=== PATIENT | male | born 1950 | race Caucasian/White ===

== ENCOUNTER 2020-07-14 11:16 | Inpatient (IN) ==
[2020-07-14 15:22] LABS: BASOPHILS % (AUTO) 0.4 % (0.2-1.0); EOSINOPHILS # (AUTO) 0.1 x10^3/uL (0.0-0.2); EOSINOPHILS % (AUTO) 0.8 % (0.9-2.9); HEMATOCRIT 39.8 % (42.0-54.0); HEMOGLOBIN 13.8 g/dL (13.5-18.0); LYMPHOCYTES # (AUTO) 1.2 X10^3/uL (1.3-2.9); LYMPHOCYTES % (AUTO) 14.3 % (21.0-51.0); MEAN CORPUSCULAR HEMOGLOBIN 31.9 pg (27.0-34.0); MEAN CORPUSCULAR HGB CONC 34.8 g/dL (33.0-35.0); MEAN CORPUSCULAR VOLUME 91.7 fL (80.0-100.0); MEAN PLATELET VOLUME 7.3 fL (7.4-11.0); MONOCYTES # (AUTO) 0.7 x10^3/uL (0.3-0.8); MONOCYTES % (AUTO) 8.6 % (0.0-13.0); NEUTROPHILS # (AUTO) 6.4 x10^3/uL (2.2-4.8); NEUTROPHILS % (AUTO) 75.9 % (42.0-75.0); PLATELET COUNT 219 X10^3/uL (150.0-450.0); RED BLOOD COUNT 4.34 X10^6/uL (4.7-6.0); RED CELL DISTRIBUTION WIDTH 13.1 % (11.6-16.5); WHITE BLOOD COUNT 8.5 X10^3/uL (3.6-10.0)
[2020-07-14 15:31] LABS: ALANINE AMINOTRANSFERASE 41 Units/L (12-78); ALBUMIN 3.2 g/dL (3.4-5.0); ALKALINE PHOSPHATASE 90 Units/L (46-116); ASPARTATE AMINO TRANSFERASE 24 Units/L (15-37); BLOOD UREA NITROGEN 9 mg/dL (7-18); CALCIUM 9.1 mg/dL (8.5-10.1); CARBON DIOXIDE 27.5 mmol/L (21-32); CHLORIDE 102 mmol/L (98-107); COR CA(FOR HYPOALB) 9.7 mg/dL (8.5-10.1); COR NA(FOR HYPERGLY) 135 mmol/L (136-145); CREATININE 0.85 mg/dL (0.70-1.30); SODIUM 135 mmol/L (136-145); eGFR NON BLACK RACES > 60 (>60)
[2020-07-14] MEDS ORDERED: NS 1000 ML 1,000 ML IV SCH (16:00)
[2020-07-14] MEDS ORDERED: NS 1000 ML 1,000 ML ONE (16:02)
[2020-07-14] MEDS ORDERED: ANTIVERT TAB 25 MG PO PRN (16:15)
[2020-07-14] MEDS ORDERED: LASIX PO PRN (16:15)
--- NOTE | 2020-07-14 16:23 | CT ---
HISTORYPT C/O LEFT SIDED WEAKNESSSTUDYBRAIN W/O CONCOMPARISONNoneTECHNIQUEMultiple CT axial images of the head were obtained without IV contrast. Coronal and sagittal images were reconstructed. Dose reduction techniques included Automated Exposure Control (AEC) and adjustment of mA and kV.FINDINGSColpocephalic dilatation of the lateral ventricles is present. There is also dilatation of the 3rd ventricle. This is incongruent with the relatively minimal amount of overlying cortical atrophy. Findings suggest hydrocephalus.Decreased density in the periventricular white matter could be periventricular edema from the hydrocephalus or could be the micro ischemic changes of aging.No mass, shift, or hemorrhage. 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 No cystic formation in the posterior fossa to suggest Dandy-Walker malformation.Basilar cisterns are intact.No fluid in the sinuses or mucosal thickening to suggest sinusitis. There is no mastoid effusion.IMPRESSION1. Congenital absence of the corpus callosum2. Findings suggesting hydrocephalus3. No acute infarct or hemorrhageElectronically signed by: Simon Gibbs (Jul 14, 2020 16:23:36)
--- NOTE | 2020-07-14 16:25 | RAD ---
HISTORYPT C/O DIARRHEASTUDYACUTE ABDOMEN SERIESCOMPARISONNoneFINDINGSThe trachea is midline. The cardiac silhouette is [unremarkable]. [The lungs are clear without focal mass or consolidation. There is no effusion or pneumothorax.] [The bony thorax is unremarkable]. Note is made of old healed right posterior upper rib fractures. No free air seen under the diaphragm.Flat plate and upright evaluation of the abdomen demonstrates a [normal bowel gas pattern]. There is no pneumoperitoneum. No pathological soft tissue mass or calcification can be observed. The bony structures are grossly intact.IMPRESSION1. [No acute cardiopulmonary disease.]2. [No evidence for acute abdominal pathology identified.]Electronically signed by: SARAH ELY (Jul 14, 2020 16:25:20)
[2020-07-14 17:08] VITALS: BMI 29.0
[2020-07-14] MEDS: PROTONIX INJ 40 MG VIAL IVP SCH (17:30)
[2020-07-14] MEDS ORDERED: ZOLOFT PO ONE (20:07)
[2020-07-14] MEDS ORDERED: VALIUM ONE (20:53)
[2020-07-14] MEDS ORDERED: ARICEPT TAB 10 MG PO SCH (21:00)
[2020-07-14] MEDS ORDERED: MYLICON TAB 80 MG CHEW PO SCH (21:00)
[2020-07-14] MEDS: VALIUM PO SCH (21:12)
[2020-07-14] MEDS: DILANTIN CAP 100 MG EXT REL PO SCH (21:12)
[2020-07-14] MEDS: ZOLOFT PO SCH (21:12)
[2020-07-14] MEDS: PHENOBARBITAL TAB 30 MG (32.4MG) PO SCH (21:13)
[2020-07-14] MEDS: TOPAMAX TAB 100 MG PO SCH (21:13)
[2020-07-14] MEDS: RisperDAL TAB 1 MG PO SCH (21:13)
[2020-07-14] MEDS: NAMENDA TAB 10 MG PO SCH (21:13)
[2020-07-14] MEDS: LIPITOR TAB 10 MG PO SCH (21:13)
[2020-07-14] MEDS: ZyrTEC TAB 10 MG PO SCH (21:14)
[2020-07-14] MEDS: DILANTIN INFATAB 50 MG PO SCH (21:14)
--- NOTE | 2020-07-14 22:36 | RAD ---
STUDY: HIP-RIGHTCOMPARISON: NoneHISTORY: PT C/O RT HIP AND KNEE PAINFINDINGS:There is no evidence of fracture or joint dislocation.There is no evidence of an embedded radiopaque foreign body.IMPRESSION:There is no evidence of fracture or joint dislocation. If the patient is unable to bear weight or if there is ongoing concern for a right hip fracture, follow-up with CT may be obtained if clinically indicated.Electronically signed by: Neo Patino (Jul 14, 2020 22:35:29)
[2020-07-15] MEDS: NS 1000 ML 1,000 ML IV SCH ×2 (01:13→20:29)
[2020-07-15] MEDS ORDERED: ULTRAM ONE (04:32)
[2020-07-15] MEDS: ULTRAM PO PRN ×2 (04:36→20:24)
[2020-07-15 04:58] LABS: BILIRUBIN,URINE NEGATIVE (NEGATIVE); BLOOD/HEMOGLOBIN,URINE NEGATIVE (NEGATIVE); GLUCOSE, URINE NEGATIVE (NEGATIVE); KETONES,URINE NEGATIVE (NEGATIVE); LEUKOCYTE ESTERASE ,URINE NEGATIVE (NEGATIVE); NITRITES,URINE NEGATIVE (NEGATIVE); PH,URINE 6.5 (5.0 - 8.0); PROTEIN,URINE NEGATIVE (NEGATIVE); UROBILINOGEN,URINE NORMAL (NORMAL)
[2020-07-15] MEDS: VALIUM PO SCH ×3 (05:01→21:00)
[2020-07-15 05:05] LABS: APPEARANCE,URINE CLEAR (CLEAR); COLOR,URINE YELLOW (YELLOW)
[2020-07-15 05:22] LABS: CRYPTOSPORIDIUM PARVUM ANTIGEN NEGATIVE (NEGATIVE); GIARDIA LAMBLIA ANTIGEN NEGATIVE (NEGATIVE)
--- NOTE | 2020-07-15 06:05 | RAD ---
HISTORYPT C/O RT KNEE AND HIP PAINSTUDYKNEE RIGHTCOMPARISONNoneTECHNIQUEThree-view right kneeFINDINGSNo acute fracture, malalignment, or aggressive osseous lesion. Osteopenia moderate size joint effusion. Small patellar osteophytes. Small osteophytes off of the medial and lateral compartments.IMPRESSIONNo acute fracture or malalignment identified. Tricompartmental osteoarthrosis. Moderate joint effusion.Electronically signed by: Simon Salmeron (Jul 15, 2020 06:04:37)
[2020-07-15 06:26] LABS: BASOPHILS % (AUTO) 0 % (0.2-1.0); EOSINOPHILS # (AUTO) 0.1 x10^3/uL (0.0-0.2); EOSINOPHILS % (AUTO) 2.4 % (0.9-2.9); HEMATOCRIT 40.6 % (42.0-54.0); HEMOGLOBIN 14.2 g/dL (13.5-18.0); LYMPHOCYTES # (AUTO) 1.4 X10^3/uL (1.3-2.9); LYMPHOCYTES % (AUTO) 23.8 % (21.0-51.0); MEAN CORPUSCULAR HEMOGLOBIN 32.2 pg (27.0-34.0); MEAN CORPUSCULAR VOLUME 92.1 fL (80.0-100.0); MEAN PLATELET VOLUME 7.5 fL (7.4-11.0); MONOCYTES % (AUTO) 33.3 % (0.0-13.0); NEUTROPHILS # (AUTO) 2.4 x10^3/uL (2.2-4.8); NEUTROPHILS % (AUTO) 40.5 % (42.0-75.0); PLATELET COUNT 195 X10^3/uL (150.0-450.0); RED BLOOD COUNT 4.41 X10^6/uL (4.7-6.0); RED CELL DISTRIBUTION WIDTH 12.9 % (11.6-16.5); WHITE BLOOD COUNT 5.9 X10^3/uL (3.6-10.0)
[2020-07-15 06:47] LABS: ALANINE AMINOTRANSFERASE 39 Units/L (12-78); ALKALINE PHOSPHATASE 83 Units/L (46-116); ASPARTATE AMINO TRANSFERASE 22 Units/L (15-37); BLOOD UREA NITROGEN 9 mg/dL (7-18); CALCIUM 8.9 mg/dL (8.5-10.1); CARBON DIOXIDE 23.7 mmol/L (21-32); CHLORIDE 106 mmol/L (98-107); COR CA(FOR HYPOALB) 9.7 mg/dL (8.5-10.1); CREATININE 0.76 mg/dL (0.70-1.30); SODIUM 139 mmol/L (136-145); TOTAL PROTEIN 7.7 g/dL (6.4-8.2); eGFR NON BLACK RACES > 60 (>60)
[2020-07-15 07:27] LABS: PLATELET MORPHOLOGY COMMENT NORMAL (NORMAL)
--- NOTE | 2020-07-15 07:54 | DR.H&P ---
H&P - History & Physical for Day of: H&P Date: 07/14/20 - Chief Complaint Chief Complaint: rectal pain, dehydration, left sided weakness r/o stroke - History of Present Illness History of Present Illness: The patient is a 70-year-old male that presents as a work in for evaluation and medical complaints. Patient reports with caregiver. Patient complains of rectal pain for 1 week. Patient does have a history of hemorrhoids. Does complain of diarrhea and weakness. States that he's been having between 5 and 6 episodes per day over a week now. Patient is requiring full assistance to get up and down. Patient is ambulating with walker. Caregiver reports that he has swelling to the left thigh. He does report drooping to the left side when walking. Denies any seizures. Does report that the last time this happened he was admitted to the hospital. Does report that he is able to tolerate drinking water. Denies nausea or vomiting. Does report that he fell last night. States that he was found on the floor so is unsure how he actually fell. Does report that all other medical complaints or control this time. Patient will be admitted to the hospital for further evaluation - Past Medical History Past Medical History: Arthritis, Hypertension, Seizures - Past Surgical History Surgical History: TURP, Other - Social History Does patient currently use any type of tobacco product: No Have you used tobacco products in the last 12 months: No Does any household member use tobacco: No Alcohol Use: None Drug Use: None - Medications Home Medications: codeine Allergy (Verified 07/14/20 15:59) CONTINUE taking the following medications acetaminophen [Mapap (acetaminophen)] 500 mg PO DAILY PRN 07/14/20 [History] atorvastatin 10 mg PO DAILY 07/14/20 [History] carbamide peroxide [Debrox] 6.5 % OTIC (EAR) .3XWEEK 07/14/20 [History] cetirizine 10 mg PO HS 07/14/20 [History] cholestyramine (with sugar) 4 g PO TID PRN 07/14/20 [History] cyanocobalamin (vitamin B-12) 2,500 mcg PO MOWEFR 07/14/20 [History] diazepam 5 mg PO .7A 3P 7P 07/14/20 [History] diclofenac sodium 2 g TOPICAL QID PRN 07/14/20 [History] diclofenac sodium [Voltaren] 2 g TOPICAL QID PRN 07/14/20 [History] diphenoxylate-atropine 1 tab PO BID PRN 07/14/20 [History] donepezil 23 mg PO HS 07/14/20 [History] finasteride 5 mg PO DAILY 07/14/20 [History] fluticasone propionate 2 spray INTRANASAL DAILY 07/14/20 [History] furosemide 40 mg PO DAILY PRN 07/14/20 [History] lactulose 10 g PO DAILY 07/14/20 [History] meclizine 25 mg PO TID PRN 07/14/20 [History] meloxicam 15 mg PO DAILY 07/14/20 [History] memantine 10 mg PO BID 07/14/20 [History] mesalamine 1.125 g PO DAILY 07/14/20 [History] [id number] [Cerovite Senior] 1 tab PO BID 07/14/20 [History] mupirocin 2 % TOPICAL BID PRN 07/14/20 [History] pantoprazole 40 mg PO DAILY 07/14/20 [History] phenobarbital 97.2 mg PO HS 07/14/20 [History] phenytoin 50 mg PO HS 07/14/20 [History] phenytoin sodium extended 200 mg PO HS 07/14/20 [History] polyethylene glycol 3350 17 g PO DAILY PRN 07/14/20 [History] pramoxine [Proctofoam] 1 % MT QID PRN 07/14/20 [History] propylene glycol [Systane Complete] 2 drp OPHTHALMIC (EYE) BID 07/14/20 [History] pyridoxine (vitamin B6) [Vitamin B-6] 100 mg PO DAILY 07/14/20 [History] quinapril 10 mg PO DAILY 07/14/20 [History] risperidone 2 mg PO HS 07/14/20 [History] sertraline 100 mg PO BID 07/14/20 [History] simethicone 125 mg PO BID PRN 07/14/20 [History] topiramate 200 mg PO BID 07/14/20 [History] tramadol 50 mg PO DAILY PRN 07/14/20 [History] triamcinolone acetonide 0.1 % TOPICAL BID 07/14/20 [History] - Review of Systems Constitutional: See HPI Eyes: See HPI ENT: See HPI Respiratory: See HPI Cardiovascular: See HPI Gastrointestinal: See HPI Genitourinary: See HPI Musculoskeletal: See HPI Skin: See HPI Neurological: See HPI - Physical Exam Vital Signs: Temperature 98.0 F Pulse Rate [Left Brachial] 81 Pulse Rate [Right Brachial] 89 Respiratory Rate 19 Blood Pressure [Left Arm] 134/76 Blood Pressure [Right Arm] 183/96 O2 Sat by Pulse Oximetry 97 Oriented: Person, Place Eyes: Normal Ear: Normal Nose: Normal Throat: Normal Respiratory: Clear Throughout Cardiovascular: Normal : Normal Auscultation: Bowel Sounds: Normal Palpation: Normal Skin: Decreased Turgur Musculoskeletal: Instability Psychiatric: Normal Mood Description: Flat Affect: Flat Speech Pattern: Clear, Delayed - Assessment/Plan (1) Rectal pain Status: Acute Plan: consult surgery (2) Dehydration Status: Acute Plan: IV fluids (3) Diarrhea Status: Acute Plan: stool culture (4) Left-sided weakness Status: Acute Plan: CT head - Allergies Allergies/Adverse Reactions: Allergies Allergy/AdvReac Type Severity Reaction Status Date / Time codeine Allergy Verified 07/14/20 15:59
[2020-07-15] MEDS ORDERED: NS 1000 ML 1,000 ML IV SCH (08:00)
[2020-07-15] MEDS ORDERED: ZOLOFT PO ONE ×2 (08:28→19:45)
[2020-07-15] MEDS: ZOLOFT PO SCH ×2 (09:25→20:21)
[2020-07-15] MEDS: ACCUPRIL PO SCH (09:26)
[2020-07-15] MEDS: MIRALAX POWDER (1 DOSE 17 G) PO SCH ×2 (09:27→17:29)
[2020-07-15] MEDS: MOBIC TAB 15 MG PO SCH (09:27)
[2020-07-15] MEDS: NAMENDA TAB 10 MG PO SCH ×2 (09:28→20:22)
[2020-07-15] MEDS: PROTONIX INJ 40 MG VIAL IVP SCH (09:28)
[2020-07-15] MEDS: TOPAMAX TAB 100 MG PO SCH ×2 (09:29→20:23)
[2020-07-15] MEDS: PROSCAR PO SCH (09:29)
[2020-07-15] MEDS: TYLENOL 500 MG TAB EXTRA STRENGTH PO SCH (09:29)
[2020-07-15] MEDS: ZyrTEC TAB 10 MG PO SCH (09:30)
[2020-07-15] MEDS: FLONASE NASAL SPRAY ENOSTRIL SCH (09:30)
[2020-07-15] MEDS: CIPRO IV 400 MG PREMIX* 400 MG/200 ML IV.SOLN. IV SCH ×2 (09:36→20:22)
--- NOTE | 2020-07-15 14:38 | CT ---
HISTORYAbdominal pain, diarrhea for 5 daysSTUDYABDOMEN/PELVIS W/O CONCOMPARISONAcute abdomen series from 1 day priorTECHNIQUEMultiple axial images of the abdomen and pelvis were obtained from the lung bases to the pubic symphysis without the administration of IV contrast. Dose reduction techniques including Automated Exposure Control (AEC) and adjustment of mA and kV were utilized.FINDINGSMild reticulation in the lung bases. The heart is normal in size. There is some mass effect by fat attenuation at the distal esophagus. This may represent a lipoma or herniation of fat. This measures approximately 3.1 by 3.2 cm on image 7 series 3. The liver, gallbladder, spleen, pancreas, adrenal glands have a benign noncontrast appearance. There are a few punctate renal hyperdensities likely punctate calculi. No hydronephrosis. Urinary bladder is mostly decompressed. Prostate is normal in size. Diastasis recti with large ventral hernia containing fat and bowel (large and small bowel and). Mild fat stranding about the rectum image 66 series 3. Negative for bowel obstruction. Appendix is not well visualized. Normal caliber mildly atherosclerotic abdominal aorta. No pathologic adenopathy. No free air, free fluid or collection. No acute osseous abnormality. Multiple compression fractures at T12, L1 and L4. T12 fracture has approximately 70 percent height loss anteriorly.IMPRESSIONLarge ventral hernia containing fat and bowel. Negative for bowel obstruction.Mild fat stranding about the rectum. Correlate for proctitis.Punctate nephrolithiasis.Fat attenuation causing mass effect on the distal esophagus. This may be herniation of fat or may represent a paraesophageal lipoma.Multiple compression fractures.Electronically signed by: Simon Salmeron (Jul 15, 2020 14:27:31)
[2020-07-15] MEDS: MYLICON TAB 80 MG CHEW PO SCH (15:07)
[2020-07-15] MEDS ORDERED: POTASSIUM CHL 40 MEQ/NS 0.45% 500 ML IV PRN (19:06)
[2020-07-15] MEDS ORDERED: POTASSIUM CHL 60 MEQ/NS 0.45% 500 ML IV PRN (19:06)
[2020-07-15] MEDS ORDERED: K-RIDER 10 MEQ/NS 100 ML 10 MEQ/100 ML BAG IV PRN (19:06)
[2020-07-15] MEDS ORDERED: POTASSIUM CHLORIDE LIQ 20 MEQ UDC PO PRN (19:06)
[2020-07-15] MEDS ORDERED: MICRO K EXTEN CAP 10 MEQ PO PRN (19:06)
[2020-07-15] MEDS ORDERED: KLOR-CON PO PRN (19:06)
[2020-07-15] MEDS: ARICEPT TAB 10 MG PO SCH (20:21)
[2020-07-15] MEDS: LIPITOR TAB 10 MG PO SCH (20:22)
[2020-07-15] MEDS: DILANTIN INFATAB 50 MG PO SCH (20:22)
[2020-07-15] MEDS: DILANTIN CAP 100 MG EXT REL PO SCH (20:22)
[2020-07-15] MEDS: RisperDAL TAB 1 MG PO SCH (20:23)
[2020-07-15] MEDS: PHENOBARBITAL TAB 30 MG (32.4MG) PO SCH (20:23)
[2020-07-15] MEDS: K-DUR TAB 20 MEQ PO PRN (20:23)
[2020-07-16] MEDS: ULTRAM PO PRN (04:07)
[2020-07-16] MEDS: NS 1000 ML 1,000 ML IV SCH (05:04)
[2020-07-16] MEDS: VALIUM PO SCH ×4 (05:16→21:39)
[2020-07-16 06:18] LABS: BASOPHILS % (AUTO) 0.4 % (0.2-1.0); EOSINOPHILS # (AUTO) 0.1 x10^3/uL (0.0-0.2); EOSINOPHILS % (AUTO) 1.5 % (0.9-2.9); HEMATOCRIT 38.2 % (42.0-54.0); HEMOGLOBIN 13.1 g/dL (13.5-18.0); LYMPHOCYTES # (AUTO) 1.1 X10^3/uL (1.3-2.9); MEAN CORPUSCULAR HEMOGLOBIN 31.8 pg (27.0-34.0); MEAN CORPUSCULAR HGB CONC 34.3 g/dL (33.0-35.0); MEAN CORPUSCULAR VOLUME 92.9 fL (80.0-100.0); MEAN PLATELET VOLUME 7.7 fL (7.4-11.0); MONOCYTES # (AUTO) 0.4 x10^3/uL (0.3-0.8); MONOCYTES % (AUTO) 7.4 % (0.0-13.0); NEUTROPHILS # (AUTO) 4.3 x10^3/uL (2.2-4.8); NEUTROPHILS % (AUTO) 72.7 % (42.0-75.0); PLATELET COUNT 196 X10^3/uL (150.0-450.0); RED BLOOD COUNT 4.12 X10^6/uL (4.7-6.0); RED CELL DISTRIBUTION WIDTH 13.1 % (11.6-16.5)
[2020-07-16 06:33] LABS: ALANINE AMINOTRANSFERASE 38 Units/L (12-78); ALBUMIN 2.6 g/dL (3.4-5.0); ALKALINE PHOSPHATASE 76 Units/L (46-116); ASPARTATE AMINO TRANSFERASE 23 Units/L (15-37); BLOOD UREA NITROGEN 9 mg/dL (7-18); CALCIUM 8.5 mg/dL (8.5-10.1); CARBON DIOXIDE 22.3 mmol/L (21-32); CHLORIDE 106 mmol/L (98-107); COR CA(FOR HYPOALB) 9.6 mg/dL (8.5-10.1); CREATININE 0.73 mg/dL (0.70-1.30); MAGNESIUM 1.7 mg/dL (1.7-2.9); SODIUM 137 mmol/L (136-145); TOTAL PROTEIN 7.1 g/dL (6.4-8.2); eGFR NON BLACK RACES > 60 (>60)
[2020-07-16] MEDS: MIRALAX POWDER (1 DOSE 17 G) PO SCH (09:24)
[2020-07-16] MEDS ORDERED: ZOLOFT PO ONE ×2 (09:34→20:08)
[2020-07-16] MEDS: CIPRO IV 400 MG PREMIX* 400 MG/200 ML IV.SOLN. IV SCH ×2 (09:39→20:40)
[2020-07-16] MEDS: FLONASE NASAL SPRAY ENOSTRIL SCH (09:39)
[2020-07-16] MEDS: ACCUPRIL PO SCH (09:39)
[2020-07-16] MEDS: MOBIC TAB 15 MG PO SCH (09:40)
[2020-07-16] MEDS: MYLICON TAB 80 MG CHEW PO SCH ×2 (09:40→20:41)
[2020-07-16] MEDS: NAMENDA TAB 10 MG PO SCH ×2 (09:41→20:43)
[2020-07-16] MEDS: PROSCAR PO SCH (09:41)
[2020-07-16] MEDS: TOPAMAX TAB 100 MG PO SCH ×2 (09:42→20:44)
[2020-07-16] MEDS: PROTONIX INJ 40 MG VIAL IVP SCH (09:42)
[2020-07-16] MEDS: TYLENOL 500 MG TAB EXTRA STRENGTH PO SCH (09:43)
[2020-07-16] MEDS: ZOLOFT PO SCH ×2 (09:44→20:45)
[2020-07-16] MEDS: ZyrTEC TAB 10 MG PO SCH (09:46)
[2020-07-16] MEDS: K-DUR TAB 20 MEQ PO PRN (09:47)
[2020-07-16] MEDS: ANUCORT-HC SUPP PR SCH ×2 (11:00→20:47)
[2020-07-16] MEDS: MAGNESIUM SULFATE 1 GRAM/100 mL PREMIX 1 GM/100 ML BAG IV PRN ×2 (11:53→15:00)
[2020-07-16] MEDS: PHENOBARBITAL TAB 30 MG (32.4MG) PO SCH (20:41)
[2020-07-16] MEDS: DILANTIN CAP 100 MG EXT REL PO SCH (20:43)
[2020-07-16] MEDS: LIPITOR TAB 10 MG PO SCH (20:43)
[2020-07-16] MEDS: RisperDAL TAB 1 MG PO SCH (20:45)
[2020-07-16] MEDS: ARICEPT TAB 10 MG PO SCH (20:45)
[2020-07-16] MEDS: DILANTIN INFATAB 50 MG PO SCH ×2 (20:47→20:56)
[2020-07-17] MEDS: NS 1000 ML 1,000 ML IV SCH (00:36)
[2020-07-17] MEDS: ULTRAM PO PRN (03:10)
[2020-07-17] MEDS: VALIUM PO SCH ×3 (06:02→21:05)
[2020-07-17 06:47] LABS: ALANINE AMINOTRANSFERASE 39 Units/L (12-78); ALBUMIN 2.7 g/dL (3.4-5.0); ALKALINE PHOSPHATASE 79 Units/L (46-116); ASPARTATE AMINO TRANSFERASE 20 Units/L (15-37); BLOOD UREA NITROGEN 9 mg/dL (7-18); CALCIUM 8.4 mg/dL (8.5-10.1); CHLORIDE 107 mmol/L (98-107); COR CA(FOR HYPOALB) 9.4 mg/dL (8.5-10.1); CREATININE 0.71 mg/dL (0.70-1.30); SODIUM 139 mmol/L (136-145); TOTAL PROTEIN 7.1 g/dL (6.4-8.2); eGFR NON BLACK RACES > 60 (>60)
[2020-07-17 06:49] LABS: BASOPHILS % (AUTO) 0.3 % (0.2-1.0); EOSINOPHILS # (AUTO) 0.1 x10^3/uL (0.0-0.2); EOSINOPHILS % (AUTO) 1.5 % (0.9-2.9); HEMATOCRIT 37.8 % (42.0-54.0); HEMOGLOBIN 13.2 g/dL (13.5-18.0); LYMPHOCYTES % (AUTO) 17.2 % (21.0-51.0); MEAN CORPUSCULAR HGB CONC 34.9 g/dL (33.0-35.0); MEAN CORPUSCULAR VOLUME 91.5 fL (80.0-100.0); MEAN PLATELET VOLUME 7.2 fL (7.4-11.0); MONOCYTES # (AUTO) 0.4 x10^3/uL (0.3-0.8); MONOCYTES % (AUTO) 6.5 % (0.0-13.0); NEUTROPHILS # (AUTO) 4.5 x10^3/uL (2.2-4.8); NEUTROPHILS % (AUTO) 74.5 % (42.0-75.0); PLATELET COUNT 208 X10^3/uL (150.0-450.0); RED BLOOD COUNT 4.13 X10^6/uL (4.7-6.0); RED CELL DISTRIBUTION WIDTH 12.9 % (11.6-16.5); WHITE BLOOD COUNT 6.1 X10^3/uL (3.6-10.0)
[2020-07-17] MEDS ORDERED: XYLOCAINE OINT 5% TOP SCH (09:15)
[2020-07-17] MEDS: NAMENDA TAB 10 MG PO SCH ×2 (10:00→21:02)
[2020-07-17] MEDS: ZOLOFT PO SCH ×2 (10:00→21:06)
[2020-07-17] MEDS: CIPRO IV 400 MG PREMIX* 400 MG/200 ML IV.SOLN. IV SCH ×2 (10:00→21:01)
[2020-07-17] MEDS: PROTONIX INJ 40 MG VIAL IVP SCH (10:00)
[2020-07-17] MEDS: ACCUPRIL PO SCH (10:00)
[2020-07-17] MEDS: FLONASE NASAL SPRAY ENOSTRIL SCH (10:00)
[2020-07-17] MEDS: MYLICON TAB 80 MG CHEW PO SCH ×2 (10:00→21:01)
[2020-07-17] MEDS: ZyrTEC TAB 10 MG PO SCH (10:00)
[2020-07-17] MEDS: MOBIC TAB 15 MG PO SCH (10:00)
[2020-07-17] MEDS: TYLENOL 500 MG TAB EXTRA STRENGTH PO SCH (10:00)
[2020-07-17] MEDS: PROSCAR PO SCH (10:00)
[2020-07-17] MEDS ORDERED: ZOLOFT PO ONE ×2 (10:04→20:22)
[2020-07-17] MEDS: MIRALAX POWDER (1 DOSE 17 G) PO SCH (10:09)
[2020-07-17] MEDS: TOPAMAX TAB 100 MG PO SCH ×2 (10:15→21:05)
[2020-07-17] MEDS: XYLOCAINE OINT 5% TOP SCH ×3 (10:30→21:05)
[2020-07-17] MEDS ORDERED: LOMOTIL PO ONE (14:23)
[2020-07-17] MEDS: SOLU-Medrol 125 MG VIAL IVP SCH ×2 (15:00→21:05)
[2020-07-17] MEDS: ULTRAM PO SCH ×2 (15:00→21:05)
[2020-07-17] MEDS: ARICEPT TAB 10 MG PO SCH (21:00)
[2020-07-17] MEDS: LIPITOR TAB 10 MG PO SCH (21:01)
[2020-07-17] MEDS: DILANTIN INFATAB 50 MG PO SCH (21:01)
[2020-07-17] MEDS: DILANTIN CAP 100 MG EXT REL PO SCH (21:01)
[2020-07-17] MEDS: PHENOBARBITAL TAB 30 MG (32.4MG) PO SCH (21:02)
[2020-07-17] MEDS: RisperDAL TAB 1 MG PO SCH (21:05)
[2020-07-18] MEDS: ULTRAM PO SCH ×3 (05:40→22:00)
[2020-07-18] MEDS: SOLU-Medrol 125 MG VIAL IVP SCH (05:40)
[2020-07-18] MEDS: VALIUM PO SCH ×3 (05:41→22:00)
[2020-07-18] MEDS: XYLOCAINE OINT 5% TOP SCH ×3 (05:41→21:59)
[2020-07-18 06:10] LABS: BASOPHILS % (AUTO) 0.1 % (0.2-1.0); EOSINOPHILS % (AUTO) 0.3 % (0.9-2.9); HEMATOCRIT 40.3 % (42.0-54.0); HEMOGLOBIN 13.9 g/dL (13.5-18.0); LYMPHOCYTES # (AUTO) 1.1 X10^3/uL (1.3-2.9); LYMPHOCYTES % (AUTO) 16.7 % (21.0-51.0); MEAN CORPUSCULAR HEMOGLOBIN 32.1 pg (27.0-34.0); MEAN CORPUSCULAR HGB CONC 34.5 g/dL (33.0-35.0); MEAN CORPUSCULAR VOLUME 93.1 fL (80.0-100.0); MEAN PLATELET VOLUME 7.5 fL (7.4-11.0); MONOCYTES # (AUTO) 0.4 x10^3/uL (0.3-0.8); MONOCYTES % (AUTO) 6.5 % (0.0-13.0); NEUTROPHILS % (AUTO) 76.4 % (42.0-75.0); PLATELET COUNT 199 X10^3/uL (150.0-450.0); RED BLOOD COUNT 4.33 X10^6/uL (4.7-6.0); RED CELL DISTRIBUTION WIDTH 12.9 % (11.6-16.5); WHITE BLOOD COUNT 6.5 X10^3/uL (3.6-10.0)
[2020-07-18 06:36] LABS: ALANINE AMINOTRANSFERASE 38 Units/L (12-78); ALBUMIN 2.8 g/dL (3.4-5.0); ALKALINE PHOSPHATASE 82 Units/L (46-116); ASPARTATE AMINO TRANSFERASE 23 Units/L (15-37); BLOOD UREA NITROGEN 9 mg/dL (7-18); CARBON DIOXIDE 21.1 mmol/L (21-32); CHLORIDE 105 mmol/L (98-107); CREATININE 0.67 mg/dL (0.70-1.30); SODIUM 136 mmol/L (136-145); TOTAL PROTEIN 7.6 g/dL (6.4-8.2); eGFR NON BLACK RACES > 60 (>60)
[2020-07-18] MEDS ORDERED: ZOLOFT PO ONE ×2 (09:04→19:48)
[2020-07-18] MEDS: NS 1000 ML 1,000 ML IV SCH ×3 (09:16→18:31)
[2020-07-18] MEDS: CIPRO IV 400 MG PREMIX* 400 MG/200 ML IV.SOLN. IV SCH ×2 (09:32→20:15)
[2020-07-18] MEDS: ACCUPRIL PO SCH (09:32)
[2020-07-18] MEDS: TYLENOL 500 MG TAB EXTRA STRENGTH PO SCH (09:33)
[2020-07-18] MEDS: ZyrTEC TAB 10 MG PO SCH (09:33)
[2020-07-18] MEDS: ZOLOFT PO SCH ×2 (09:33→20:14)
[2020-07-18] MEDS: PROTONIX INJ 40 MG VIAL IVP SCH (09:34)
[2020-07-18] MEDS: FLONASE NASAL SPRAY ENOSTRIL SCH (09:34)
[2020-07-18] MEDS: MOBIC TAB 15 MG PO SCH (09:35)
[2020-07-18] MEDS: NAMENDA TAB 10 MG PO SCH ×2 (09:35→20:13)
[2020-07-18] MEDS: MIRALAX POWDER (1 DOSE 17 G) PO SCH (09:35)
[2020-07-18] MEDS: MYLICON TAB 80 MG CHEW PO SCH ×2 (09:36→20:14)
[2020-07-18] MEDS: TOPAMAX TAB 100 MG PO SCH ×2 (09:36→20:13)
[2020-07-18] MEDS: PROSCAR PO SCH (09:36)
[2020-07-18] MEDS: ARICEPT TAB 10 MG PO SCH (20:13)
[2020-07-18] MEDS: PHENOBARBITAL TAB 30 MG (32.4MG) PO SCH (20:13)
[2020-07-18] MEDS: LIPITOR TAB 10 MG PO SCH (20:13)
[2020-07-18] MEDS: RisperDAL TAB 1 MG PO SCH (20:15)
[2020-07-18] MEDS: DILANTIN CAP 100 MG EXT REL PO SCH (20:16)
[2020-07-18] MEDS: DILANTIN INFATAB 50 MG PO SCH (21:00)
[2020-07-19] MEDS: ULTRAM PO SCH (05:48)
[2020-07-19] MEDS: VALIUM PO SCH (05:49)
[2020-07-19] MEDS: XYLOCAINE OINT 5% TOP SCH (05:50)
[2020-07-19 06:51] LABS: BASOPHILS % (AUTO) 0.3 % (0.2-1.0); EOSINOPHILS # (AUTO) 0.1 x10^3/uL (0.0-0.2); EOSINOPHILS % (AUTO) 2.2 % (0.9-2.9); HEMOGLOBIN 14.5 g/dL (13.5-18.0); LYMPHOCYTES # (AUTO) 1.3 X10^3/uL (1.3-2.9); LYMPHOCYTES % (AUTO) 21.5 % (21.0-51.0); MEAN CORPUSCULAR HEMOGLOBIN 32.1 pg (27.0-34.0); MEAN CORPUSCULAR HGB CONC 34.6 g/dL (33.0-35.0); MEAN CORPUSCULAR VOLUME 92.9 fL (80.0-100.0); MEAN PLATELET VOLUME 7.8 fL (7.4-11.0); MONOCYTES # (AUTO) 0.5 x10^3/uL (0.3-0.8); NEUTROPHILS # (AUTO) 4.2 x10^3/uL (2.2-4.8); PLATELET COUNT 241 X10^3/uL (150.0-450.0); RED BLOOD COUNT 4.52 X10^6/uL (4.7-6.0); RED CELL DISTRIBUTION WIDTH 13.1 % (11.6-16.5); WHITE BLOOD COUNT 6.2 X10^3/uL (3.6-10.0)
[2020-07-19 07:06] LABS: ALANINE AMINOTRANSFERASE 51 Units/L (12-78); ALBUMIN 2.9 g/dL (3.4-5.0); ALKALINE PHOSPHATASE 94 Units/L (46-116); ASPARTATE AMINO TRANSFERASE 26 Units/L (15-37); BLOOD UREA NITROGEN 14 mg/dL (7-18); CALCIUM 8.8 mg/dL (8.5-10.1); CARBON DIOXIDE 21.5 mmol/L (21-32); CHLORIDE 105 mmol/L (98-107); COR CA(FOR HYPOALB) 9.7 mg/dL (8.5-10.1); CREATININE 0.77 mg/dL (0.70-1.30); MAGNESIUM 1.9 mg/dL (1.7-2.9); SODIUM 140 mmol/L (136-145); TOTAL PROTEIN 7.7 g/dL (6.4-8.2); eGFR NON BLACK RACES > 60 (>60)
[2020-07-19] MEDS ORDERED: ZOLOFT PO ONE (08:56)
[2020-07-19] MEDS: ZOLOFT PO SCH (09:38)
[2020-07-19] MEDS: TYLENOL 500 MG TAB EXTRA STRENGTH PO SCH (09:39)
[2020-07-19] MEDS: NAMENDA TAB 10 MG PO SCH (09:40)
[2020-07-19] MEDS: ZyrTEC TAB 10 MG PO SCH (09:40)
[2020-07-19] MEDS: PROSCAR PO SCH (09:41)
[2020-07-19] MEDS: TOPAMAX TAB 100 MG PO SCH (09:41)
[2020-07-19] MEDS: PROTONIX INJ 40 MG VIAL IVP SCH (09:42)
[2020-07-19] MEDS: MOBIC TAB 15 MG PO SCH (09:42)
[2020-07-19] MEDS: FLONASE NASAL SPRAY ENOSTRIL SCH (09:42)
[2020-07-19] MEDS: MIRALAX POWDER (1 DOSE 17 G) PO SCH (09:43)
[2020-07-19] MEDS: MYLICON TAB 80 MG CHEW PO SCH (09:43)
[2020-07-19] MEDS: ACCUPRIL PO SCH (09:44)
[2020-07-19] MEDS: CIPRO IV 400 MG PREMIX* 400 MG/200 ML IV.SOLN. IV SCH (09:46)
[2020-07-19 12:22] VITALS: BP 119/72
== END 2020-07-19 13:35 | disposition home or self-care (01) | DRG 395 ==
LOC: MED/SURG
PROVIDERS: ADMIT Internal Medicine; ATTEND Internal Medicine
DX: M25.551 Pain in right hip; R19.7 Diarrhea, unspecified; K62.89 Other specified diseases of anus and rectum; K52.9 Noninfective gastroenteritis and colitis, unspecified; I10 Essential (primary) hypertension; R53.1 Weakness; M25.561 Pain in right knee; E86.0 Dehydration; G40.909 Epilepsy, unspecified, not intractable, without status epilepticus; R26.89 Other abnormalities of gait and mobility